=== PATIENT | female | born 1960 | race Caucasian/White ===

== ENCOUNTER 2022-08-28 15:38 | Inpatient (IN) | payer OTHER ==
[~2022-08-28] VITALS: Ht 149.9 cm; Wt 82.6 kg
[2022-08-28] MEDS ORDERED: MECLIZINE 25MG TABLET PO ONE (16:00)
[2022-08-28 16:26] LABS: BASOPHILS % 0.2 % (0.0-2.0); EOSINOPHILS % 2.2 % (0.0-5.0); HEMATOCRIT. 38.4 % (36.0-48.0); LYMPHOCYTES % 19.1 % (20.0-50.0); MEAN CORPUSCULAR HEMOGLOBIN 29.2 pg (28.0-32.0); MEAN CORPUSCULAR VOLUME 86.1 fL (81.0-99.0); MEAN PLATELET VOLUME 6.6 fl (7.4-10.4); MONOCYTES % 6.6 % (2.0-8.0); NEUTROPHILS % 71.9 % (40.0-76.0); PLATELET 283 x1000/uL (130-400); RED BLOOD CELL COUNT 4.46 mill/uL (4.2-5.4); RED CELL DISTRIBUTION WIDTH 12.9 % (11.6-14.6)
[2022-08-28 16:33] LABS: PROTHROMBIN TIME 10.8 sec (9.6-11.0)
[2022-08-28 16:37] LABS: CHLORIDE 108 mEq/L (98-107)
[2022-08-28 16:47] LABS: ETHANOL BLOOD < 10 mg/dL
[2022-08-28] MEDS ORDERED: MECLIZINE 25MG TABLET PO NR (20:15)
[2022-08-28 20:17] LABS: CLARITY URINE CLEAR (CLEAR); COLOR URINE YELLOW (YELLOW); KETONES URINE 1+ (NEGATIVE); LEUKOCYTE ESTERASE URINE 1+ (NEGATIVE); NITRITE URINE NEGATIVE (NEGATIVE); OCCULT BLOOD URINE NEGATIVE (NEGATIVE); PH URINE 6.5 (4.5-8.0); PROTEIN URINE NEGATIVE (NEGATIVE); SPECIFIC GRAVITY URINE 1.029 (1.005-1.030); UROBILINOGEN URINE 0.2 E.U./dL (0.2-1.0)
[2022-08-28] MEDS ORDERED: METOCLOPRAMIDE HCL 10MG/2ML VIAL IV ONE (20:30)
[2022-08-28] MEDS ORDERED: ACETAMINOPHEN 325MG TABLET PO ONE (20:30)
[2022-08-28] MEDS ORDERED: ACET-2708 MT (20:31)
[2022-08-28] MEDS ORDERED: MECL-159 MT (20:31)
[2022-08-28 20:34] LABS: *AMPHETAMINES SCREEN URINE NEGATIVE (NEGATIVE); *BARBITURATES SCREEN URINE NEGATIVE (NEGATIVE); *BENZODIAZEPINES SCREEN URINE NEGATIVE (NEGATIVE); *COCAINE SCREEN URINE NEGATIVE (NEGATIVE); CANNABINOID URINE SCREEN NEGATIVE (NEGATIVE); METHADONE URINE SCREEN NEGATIVE (NEGATIVE); OPIATES URINE SCREEN NEGATIVE (NEGATIVE); PHENCYCLIDINE URINE SCREEN NEGATIVE (NEGATIVE)
[2022-08-29] MEDS ORDERED: ONDANSETRON HCL 4MG/2ML INJ IV PRN (08:30)
[2022-08-29] MEDS ORDERED: POTASSIUM CHLORIDE 20MEQ TABLET SR PO NR (08:30)
[2022-08-29] MEDS ORDERED: ACETAMINOPHEN 325MG TABLET PO PRN (08:30)
[2022-08-29] MEDS: ASPIRIN 81MG TABLET PO SCH (08:43)
[2022-08-29] MEDS ORDERED: ENOXAPARIN 30MG/0.3ML SYR SUBCUT SCH (09:00)
[2022-08-29 12:00] VITALS: BP 166/85
[2022-08-29 12:15] VITALS: BP 166/85
[2022-08-29] MEDS ORDERED: INFLUENZA VACCINE 05/PF 0.5 ML SYRINGE IM ONE (14:00)
[2022-08-29] MEDS: CLOPIDOGREL 75MG TABLET PO SCH (14:10)
[2022-08-29 16:00] VITALS: BP 169/87
[2022-08-29] MEDS: AMLODIPINE 5MG TABLET PO SCH (17:51)
[2022-08-29 20:00] VITALS: BP 151/71
[2022-08-29] MEDS ORDERED: ATORVASTATIN CALCIUM 40MG TABLET PO SCH (21:00)
[2022-08-30] VITALS: BP 151/85
[2022-08-30 04:00] VITALS: BP 134/75
[2022-08-30 08:00] VITALS: BP 148/70
[2022-08-30] MEDS ORDERED: ENOXAPARIN 40MG/0.4ML SYR SUBCUT SCH (09:00)
[2022-08-30] MEDS: AMLODIPINE 5MG TABLET PO SCH (09:04)
[2022-08-30] MEDS: ASPIRIN 81MG TABLET PO SCH (09:04)
[2022-08-30] MEDS: CLOPIDOGREL 75MG TABLET PO SCH (09:04)
[2022-08-30 12:00] VITALS: BP 123/66
[2022-08-30 16:00] VITALS: BP 145/68
[2022-08-30] MEDS ORDERED: ASPI-1160 PO (16:23)
[2022-08-30] MEDS ORDERED: AMLO5TAB88 PO (16:23)
[2022-08-30] MEDS ORDERED: LIP40 PO (16:23)
[2022-08-30] MEDS ORDERED: CLOP75TA15 PO (16:23)
[2022-08-30 17:06] VITALS: BP 145/68
== END 2022-08-30 18:25 | disposition home health service (06) | DRG 45 ==
LOC: ER 15:38 → MICUSO 08-29 04:05 → EDBEDREQ 08-29 04:15 → 7EST 08-29 12:00
PROVIDERS: ADMIT Internal Medicine; ATTEND Internal Medicine
DX: I63.9 Cerebral infarction, unspecified (principal); G81.91 Hemiplegia, unspecified affecting right dominant side; E11.9 Type 2 diabetes mellitus without complications; E66.9 Obesity, unspecified; R13.10 Dysphagia, unspecified; E78.5 Hyperlipidemia, unspecified; I10 Essential (primary) hypertension; E78.00 Pure hypercholesterolemia, unspecified; E87.6 Hypokalemia; Z88.0 Allergy status to penicillin; Z83.3 Family history of diabetes mellitus; Z82.49 Family history of ischemic heart disease and other diseases of the circulatory system; Z68.36 Body mass index [BMI] 36.0-36.9, adult
CPT/HCPCS: 36415; 70496; 70498; 70551; 71045; 80053; 80061; 80305; 80320; 81003; 83036; 83605; 83880; 84443; 84484; 85025; 90686; 92610; 93005; 93306; 97110; 97162; 99285; J1650; J2765; J8597; G0480